=== PATIENT | male | born 1975 | race Caucasian/White ===

== ENCOUNTER 2020-01-07 11:27 | Emergency (ER) | payer OTHER, SELFPAY ==
[2020-01-07 11:40] VITALS: BP 120/72; PULSE 104; RESP 16; TEMP 37.1; O2SAT 96
--- NOTE | 2020-01-07 11:46 | ED.SKABFB ---
HPI - Skin/Abscess/Foreign Bdy General Chief complaint: Extremity Injury, Lower Stated complaint: Injury right foot pinky toe Time Seen by Provider: 01/07/20 11:42 Source: patient and RN notes reviewed Mode of arrival: ambulatory Limitations: no limitations History of Present Illness HPI narrative: Patient presents today complaining of a laceration to the dorsum of his right foot that was sustained approximately 1 hour prior to arrival at home, when he dropped a bladed instrument on his foot. He is up-to-date on his tetanus vaccine. Denies numbness or tingling in the foot or toes. He is currently pain-free. He has tried no [id number] interventions prior to arrival. MD complaint: other (Laceration) Related Data Home Medications Medication Instructions Recorded Confirmed buprenorphine-naloxone film 01/07/20 01/07/20 Allergies Allergy/AdvReac Type Severity Reaction Status Date / Time amitriptyline Allergy Intermediate Unknown Verified 01/07/20 11:43 nortriptyline Allergy Intermediate Unknown Verified 01/07/20 11:43 choline salicylate Allergy Unknown Unknown Verified 01/07/20 11:43 duloxetine Allergy Unknown Unknown Verified 01/07/20 11:43 Sulfa (Sulfonamide Allergy Unknown Unknown Verified 01/07/20 11:43 Antibiotics) CHOLINE SALICYLATE Allergy Mild Unknown Uncoded 01/07/20 11:43 MAGNESIUM SALICYLATE Allergy Mild Unknown Uncoded 01/07/20 11:43 Review of Systems Review of Systems: Narrative: CONSTITUTIONAL: Denies body aches, fever, chills, or sweats. EYES: Denies visual changes, redness, or discharge. ENT: Denies rhinorrhea, congestion, sore throat, or otalgia. CARDIOVASCULAR: Denies chest pain, palpitations, or edema. RESPIRATORY: Denies cough or dyspnea. GASTROINTESTINAL: Denies abdominal pain, nausea, vomiting, or diarrhea. GENITOURINARY: Denies dysuria or hematuria. SKIN: Denies rash, itching. + Laceration to dorsum of right foot MUSCULOSKELETAL: Denies back pain, joint pain, or myalgia. NEUROLOGIC: Denies headache, numbness, tingling, or weakness. PSYCH: Denies depression or anxiety. PMFSH Social History Social History Smoking status: Heavy tobacco smoker Alcohol intake: current Comments At time of signature, I have reviewed and agree with nursing past medical, surgical, social and family history unless otherwise noted. Please see nursing chart for further information. There is no relevant family history pertinent to the presenting complaint Exam Narrative: Exam Narrative: GENERAL: Well-appearing, well-nourished, and in no acute distress. HEAD: Normocephalic, atraumatic. EYES: EOMI. No redness or drainage. Conjunctivae normal. ENT: Mucous membranes pink and moist. NECK: Normal AROM. CHEST: No respiratory distress. EXTREMITIES: Normal range of motion. No edema. SKIN: Warm, dry, no rash. Capillary refill normal. Normal skin turgor. 1.5 cm full-thickness linear laceration to the distal right fifth metatarsal, dorsal aspect. No active bleeding. Distal sensation intact. Capillary refill normal. Pedal pulse normal. Full AROM of the toe against resistance. NEURO: No focal deficits. Alert and oriented x3. Gait steady. PSYCH: Normal affect. No signs of depression or anxiety. Course Vital Signs Vital signs: Vital Signs Temperature 98.8 F 01/07/20 11:40 Pulse Rate 104 H 01/07/20 11:40 Respiratory Rate 16 01/07/20 11:40 Blood Pressure 120/72 01/07/20 11:40 Pulse Oximetry 96 01/07/20 11:40 Temperature 98.8 F 01/07/20 11:40 Pulse Rate 104 H 01/07/20 11:40 Respiratory Rate 16 01/07/20 11:40 Blood Pressure 120/72 01/07/20 11:40 Pulse Oximetry 96 01/07/20 11:40 Reviewed Procedures Laceration Laceration 1: Date: 01/07/20 Time: 12:02 Site: lower extremity Size (cm): 1.5 Description: linear Depth: simple, single layer Local Anesthetic: lidocaine 1% Amount of anesthesia used (mL): 1 Pre-repai
== END 2020-01-07 12:09 | disposition home or self-care (01) ==
PROVIDERS: Emergency Provider Nurse Practitioner
DX: S91.311A Laceration without foreign body, right foot, initial encounter (principal); W26.8XXA Contact with other sharp object(s), not elsewhere classified, initial encounter
CPT/HCPCS: 12001; 99212; G0463

== ENCOUNTER 2020-02-04 16:23 | Emergency (ER) | payer OTHER, SELFPAY ==
[2020-02-04 16:45] VITALS: BP 121/78; PULSE 88; RESP 16; TEMP 36.4
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
== END 2020-02-04 17:34 | disposition home or self-care (01) ==
PROVIDERS: Emergency Provider Nurse Practitioner
DX: L23.1 Allergic contact dermatitis due to adhesives (principal); F17.200 Nicotine dependence, unspecified, uncomplicated
CPT/HCPCS: 99213; G0463

== ENCOUNTER 2020-02-09 20:56 | Emergency (ER) | payer OTHER, SELFPAY ==
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
[2020-02-09 22:55] VITALS: BP 119/78; PULSE 90; RESP 16; TEMP 36.9; O2SAT 96
[2020-02-09] MEDS: LIDOCAINE HCL 1% LOCAL INJ 20 ML VIAL (23:44)
[2020-02-09] MEDS: cefTRIAXone 1 GM VIAL IM (23:44)
[2020-02-09 23:45] VITALS: BP 135/85; PULSE 80; RESP 18; TEMP 36.4; O2SAT 98
== END 2020-02-09 23:50 | disposition home or self-care (01) ==
PROVIDERS: Emergency Provider Family Medicine; PCP Physician Assistant
DX: L03.116 Cellulitis of left lower limb (principal)
CPT/HCPCS: 96372; 99282; 99283; J0696

== ENCOUNTER 2021-12-12 19:08 | Emergency (ER) | payer OTHER, SELFPAY ==
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
[2021-12-12 19:20] VITALS: BP 138/92; PULSE 107; RESP 20; TEMP 37.3; O2SAT 99
--- NOTE | 2021-12-12 19:32 | ED.SKABFB ---
HPI - Skin/Abscess/Foreign Bdy General Chief complaint: Skin/Abscess/Foreign Body Stated complaint: sob, swollen lymph nodes axilla Time Seen by Provider: 12/12/21 19:32 Source: patient Related Data Home Medications Medication Instructions Recorded Confirmed buprenorphine-naloxone 1 film SUBLINGUAL DAILY 01/07/20 02/10/20 Allergies Allergy/AdvReac Type Severity Reaction Status Date / Time amitriptyline Allergy Intermediate Unknown Verified 12/12/21 19:41 nortriptyline Allergy Intermediate Unknown Verified 12/12/21 19:41 choline salicylate Allergy Unknown Unknown Verified 01/07/20 11:43 duloxetine Allergy Unknown Unknown Verified 01/07/20 11:43 Sulfa (Sulfonamide Allergy Unknown Unknown Verified 01/07/20 11:43 Antibiotics) CHOLINE SALICYLATE Allergy Mild Unknown Uncoded 01/07/20 11:43 MAGNESIUM SALICYLATE Allergy Mild Unknown Uncoded 01/07/20 11:43 PMFSH Social History Social History Smoking status: Heavy tobacco smoker Alcohol intake: current Gender identity (if verbalized by the patient): Male Discharge Plan Discharge Prescriptions: No Action buprenorphine-naloxone 12-3 mg film 1 film sublingual DAILY RF: 0 mupirocin 2 % ointment 1 applic TOPICAL BID Qty: 22 RF: 0
--- NOTE | 2021-12-12 19:45 | ECG_ITS ---
Measurements Intervals Steward Rate: 106 P: 16 KS: 158 QRS: 47 QRSD: 91 T: 50 QT: 332 QTc: 442 Interpretive Statements SINUS TACHYCARDIA BORDERLINE ECG Electronically Signed On 12-13-2021 8:01:40 CDT by Bear Burris D.O.
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
[2021-12-12 20:12] VITALS: BP 135/91; PULSE 91; RESP 14; O2SAT 97
[2021-12-12] MEDS: KETOROLAC 30 MG/ML VIAL (*BKC) IM (20:14)
[2021-12-12 20:26] LABS: Basophils Absolute Auto 0.05 K/mm3 (0.00-0.10); Basophils Percent Auto 0.7 % (0.0-1.0); Eosinophils Absolute Auto 0.27 K/mm3 (0.02-0.50); Eosinophils Percent Auto 3.8 % (1.0-6.0); Hematocrit 39.2 % (40.0-54.0); Hemoglobin 13.8 g/dL (14.0-18.0); Immature Granulocyte Absolute 0.02 K/mm3 (0.00-0.00); Immature Granulocyte Percent A 0.3 % (0.0-0.0); Lymphocytes Absolute Auto 2.28 K/mm3 (1.10-4.50); Lymphocytes Percent Auto 31.7 % (18.0-42.0); Mean Corpuscular HGB Conc 35.2 g/dL (32.0-36.0); Mean Corpuscular Hemoglobin 31.4 pg (27.0-31.0); Mean Corpuscular Volume 89.1 fL (78.0-102.0); Mean Platelet Volume 8.7 fl (8.7-11.0); Monocytes Absolute Auto 0.64 K/mm3 (0.10-0.90); Monocytes Percent Auto 8.9 % (2.0-11.0); Neutrophils Absolute Auto 3.9 K/mm3 (1.7-7.2); Neutrophils Percent Auto 54.6 % (50.0-70.0); Platelet Count Result 262 K/mm3 (150-420); Red Cell Distribution Width 11.9 % (11.6-14.4); White Blood Count 7.2 K/mm3 (4.8-10.8)
[2021-12-12 20:43] LABS: Alanine Aminotransferase 19 U/L (16-63); Alkaline Phosphatase 103 U/L (46-116); Anion Gap 6 mmol/L (8-16); Aspartate Amino Transferase 14 U/L (15-37); Bilirubin,Total 0.2 mg/dL (0.00-1.00); Blood Urea Nitrogen 11 mg/dL (7-18); Calcium 8.5 mg/dL (8.5-10.1); Carbon Dioxide 27 mmol/L (21-32); Chloride 103 mmol/L (98-108); Estimated CRCL calculation 115 ml/min; Estimated Glomerular Filt Rate > 60; Glucose 134 mg/dL (70-99); Osmolality Calculated 283 mOsm/kg (285-295); Potassium 3.4 mmol/L (3.5-5.1); Sodium 136 mmol/L (136-145); Total Protein 6.3 g/dL (6.4-8.2); Troponin I 5.2 ng/L (0.00-60.4)
[2021-12-12 21:00] VITALS: BP 135/92; PULSE 92; RESP 16; TEMP 37.1; O2SAT 99
[2021-12-12] MEDS: CEPHALEXIN 500 MG CAPSULE PO (21:02)
== END 2021-12-12 21:09 | disposition home or self-care (01) ==
PROVIDERS: Emergency Provider Internal Medicine Critical Care Medicine
DX: R07.89 Other chest pain (principal); L08.9 Local infection of the skin and subcutaneous tissue, unspecified; F41.9 Anxiety disorder, unspecified; F32.A Depression, unspecified; F11.20 Opioid dependence, uncomplicated; Z72.0 Tobacco use
CPT/HCPCS: 36415; 71101; 80053; 84484; 85025; 93005; 96372; 99284; A9270; J1885

== ENCOUNTER 2022-01-02 13:43 | Emergency (ER) | payer OTHER, SELFPAY ==
[2022-01-02 13:56] VITALS: BP 131/92; PULSE 98; RESP 20; TEMP 36.2; O2SAT 100
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
[2022-01-02 14:42] LABS: Basophils Percent Auto 0.6 % (0.2-1.2); Eosinophils Absolute Auto 0.2 K/mm3 (0-0.3); Eosinophils Percent Auto 3.2 % (0-4.4); Hematocrit 40.3 % (42.0-52.0); Hemoglobin 13.6 g/dL (14.0-18.0); Immature Granulocyte Absolute 0.01 K/mm3 (0.00-0.031); Immature Granulocyte Percent A 0.2 % (0-0.5); Lymphocytes Absolute Auto 2.07 K/mm3 (0.9-3.2); Lymphocytes Percent Auto 33.2 % (18.3-44.2); Mean Corpuscular HGB Conc 33.7 g/dl (32-36); Mean Corpuscular Hemoglobin 30.8 pg (26-34); Mean Corpuscular Volume 91.2 fl (80-100); Mean Platelet Volume 8.8 fl (7.4-10.4); Monocytes Absolute Auto 0.6 K/mm3 (0.1-0.6); Monocytes Percent Auto 9.8 % (2.6-8.5); Neutrophils Absolute Auto 3.3 K/mm3 (1.3-6.7); Platelet Count Result 242 k/mm3 (150-375); Red Blood Count 4.42 M/mm3 (4.6-6.20); Red Cell Distribution Width 12.8 % (11.5-14.5); White Blood Count 6.2 K/mm3 (4.5-10.0)
[2022-01-02 14:53] LABS: Anion Gap 5 mmol/L (8-16); Blood Urea Nitrogen 13 mg/dL (9-20); Calcium 8.8 mg/dL (8.4-10.2); Carbon Dioxide 25 mmol/L (22-30); Chloride 105 mmol/L (98-107); Estimated CRCL calculation 111 ml/min; Estimated Glomerular Filt Rate > 60; Glucose 157 mg/dL (65-110); Potassium 3.4 mmol/L (3.4-5.0); Sodium 135 mmol/L (137-145)
== END 2022-01-02 15:11 | disposition home or self-care (01) ==
PROVIDERS: Physician Assistant; Emergency Provider Emergency Medicine
DX: R21 Rash and other nonspecific skin eruption (principal); F41.9 Anxiety disorder, unspecified; F17.200 Nicotine dependence, unspecified, uncomplicated
CPT/HCPCS: 36415; 80048; 85025; 99283

== ENCOUNTER 2022-01-10 19:37 | Emergency (ER) | payer OTHER, SELFPAY ==
--- NOTE | ~2022-01-10 | XR_ITS ---
EXAM: XR shoulder RT min 2V DATE: 01/10/2022 20:08 HISTORY: Fall and pain . COMPARISON: None available. FINDINGS: Normal mineralization. No fracture or dislocation. No lytic or blastic lesion. Joint space s are maintained. No erosion or periosteal change. Soft tissues within normal limits. IMPRESSION: No acute osseous finding in the right shoulder. Reviewed, dictated and finalized at location K.
[2022-01-10 19:39] VITALS: BP 124/76; PULSE 116; RESP 14; TEMP 36.7; O2SAT 100
--- NOTE | 2022-01-10 19:57 | ED.UPPEXIN ---
HPI - Extremity Injury (Upper) General Chief Complaint: Extremity Injury, Upper Stated Complaint: right shoulder pain Time Seen by Provider: 01/10/22 19:48 History of Present Illness HPI narrative: 46-year-old male presents emergency room secondary pain to the right shoulder. He was bowling yesterday evening and as he went to release the ball his feet came out from under him and he landed on his right shoulder. He hit his head but had no loss of consciousness. The only complaint he has is pain to the right shoulder. Denies any prior injuries to his right shoulder. Has decreased range of motion at that shoulder secondary to pain. Denies any neck pain. Related Data Home Medications Medication Instructions Recorded Confirmed buprenorphine 8 mg-naloxone 2 mg 2 - 8 film buccal BID 12/12/21 12/12/21 sublingual film clonazepam 0.5 mg tablet 2.5 mg PO DIRECTED 12/12/21 12/12/21 sertraline 100 mg tablet 150 mg PO DAILY 12/12/21 12/12/21 Allergies Allergy/AdvReac Type Severity Reaction Status Date / Time amitriptyline Allergy Intermediate Unknown Verified 01/10/22 19:43 nortriptyline Allergy Intermediate Unknown Verified 01/10/22 19:43 duloxetine Allergy Unknown Unknown Verified 01/10/22 19:43 Sulfa (Sulfonamide Allergy Unknown Unknown Verified 01/10/22 19:43 Antibiotics) Review of Systems Review of Systems: CONSTITUTIONAL: Denies fever, chills, or sweats. EYES: Denies visual changes, redness, or discharge. ENT: Denies rhinorrhea, congestion, sore throat, or otalgia. CARDIOVASCULAR: Denies chest pain, palpitations, or edema. RESPIRATORY: Denies cough or dyspnea. GASTROINTESTINAL: Denies abdominal pain, nausea, vomiting, or diarrhea. GENITOURINARY: Denies dysuria or hematuria. SKIN: Denies rash or itching. MUSCULOSKELETAL: Pain to the right shoulder with decreased range of motion. Denies any neck or back pain NEUROLOGIC: Denies headache, numbness, or weakness. PSYCHIATRIC: Denies anxiety or depression. [facility] Past Medical History Medical History No pertinent past medical history Social History Social History Smoking status: Heavy tobacco smoker Alcohol intake: current Gender identity (if verbalized by the patient): Male Exam Narrative: APPEARANCE: Well appearing, no pain or distress, well-nourished. Head normocephalic and atraumatic. EYES: PERRLA/EOMI, conjunctivae very clear. NOSE: Normal with no drainage EARS:TMS clear [place]on Tilley, with good light reflex. THROAT: Pharynx clear, no exudate. NECK: Supple. No adenopathy, no masses. RESPIRATORY: Airway patent, respirations nonlabored. Clear to auscultation bilaterally, no rales, rhonchi, wheezing. CARDIOVASCULAR: Regular rate and rhythm without murmurs, rubs, or gallops. ABDOMINAL: Soft, nontender, nondistended, no hepatosplenomegaly Musculoskeletal: Decreased range of motion of the right shoulder. Got focal tenderness to palpation to the right anterior shoulder. No obvious deformity. There is no tenderness to palpation along the clavicle. There is no tenderness to palpation along the humerus down to the fingers. NEURO: Alert. Cranial nerves II through XII intact. Normal gait. Good coordination. Nonfocal examination. SKIN:: Warm, dry. Normal Color PSYCHIATRIC: Normal affect/mood, normal interaction Course Vital Signs Vital signs: Vital Signs Temperature 98.0 F 01/10/22 19:39 Pulse Rate 116 H 01/10/22 19:39 Respiratory Rate 14 01/10/22 19:39 Blood Pressure 124/76 01/10/22 19:39 Pulse Oximetry 100 01/10/22 19:39 Oxygen Delivery Room Air 01/10/22 19:39 Temperature 98.0 F 01/10/22 19:39 Pulse Rate 116 H 01/10/22 19:39 Respiratory Rate 14 01/10/22 19:39 Blood Pressure 124/76 01/10/22 19:39 Pulse Oximetry 100 01/10/22 19:39 Oxygen Delivery Room Air 01/10/22 19:39 MDM - Extremity Injury (Upper) MDM
--- NOTE | 2022-01-10 20:02 | PC.NURSE ---
Patient taken to xray.
[2022-01-10] MEDS: NAPROXEN 500 MG TABLET PO (20:09)
== END 2022-01-10 20:52 | disposition home or self-care (01) ==
PROVIDERS: Emergency Provider Emergency Medicine; PCP Physician Assistant
DX: S49.91XA Unspecified injury of right shoulder and upper arm, initial encounter (principal); W18.39XA Other fall on same level, initial encounter; Y93.54 Activity, bowling; F17.200 Nicotine dependence, unspecified, uncomplicated
CPT/HCPCS: 73030; 99283; A9270

== ENCOUNTER 2022-09-15 13:15 | Outpatient (CLI) | payer OTHER, SELFPAY ==
--- NOTE | ~2022-09-15 | MR_ITS ---
EXAMINATION: MR shoulder RT wo con DATE: 09/15/2022 14:17 INDICATION: Right shoulder pain TECHNIQUE: Magnetic resonance imaging (MRI) of the affected shoulder was performed without intravenou s contrast. Sequences included axial PD-weighted FS FSE, coronal oblique PD-weighted FS FSE, coronal oblique T2-weighted FS FSE, sagittal PD-weighted FS FSE, and sagittal T1-weighted SE. COMPARISON: None. FINDINGS: Coracoacromial arch: The acromion undersurface is minimally curved in morphology (type I-II) which is accentuated anterior ly by a small subacromial spur at the acromial insertion of the normal coracoacromial ligament. Minim al acromioclavicular osteoarthritis. Rotator cuff: Mild to moderate tendinopathy of the supraspinatus and conjoined portion of the supraspinatus and inf raspinatus tendons without tear. The more posterior infraspinatus and teres minor tendons are normal. [Subscapularis tendinopathy with small partial-thickness longitudinal split tear extending up to 1.5 cm medially from the lesser tuberosity footplate. Normal rotator cuff muscle bulk and signal. Biceps tendon, glenoid labrum and glenohumeral cartilage: Long head of the biceps tendon is normal. Glenoid labrum is normal. Glenohumeral cartilage is normal. Fluid: Physiologic amount of fluid in the glenohumeral joint and biceps tendon sheath. No loose osteochondr al bodies. Small amount of fluid in the subacromial/subdeltoid bursa consistent with mild bursitis. Bones: Normal marrow signal with no edema, fracture or abnormal marrow replacing process. IMPRESSION: 1. Moderate tendinopathy of the supraspinatus and conjoined supraspinatus and infraspinatus tendons w ithout discrete tear. 2. Mild tendinopathy and small intrasubstance longitudinal split tear at the lesser tuberosity insert ion of the subscapularis tendon. 2. Mild subacromial/subdeltoid bursitis. Reviewed, dictated and finalized at location A. SER IMPRESSION: 1. Moderate tendinopathy of the supraspinatus and conjoined supraspinatus and i nfraspinatus tendons without discrete tear. 2. Mild tendinopathy and small intrasubstance longitudinal split tear at the le sser tuberosity insertion of the subscapularis tendon. 2. Mild subacromial/subdeltoid bursitis.
== END 2022-09-15 13:16 | disposition home or self-care (01) ==
PROVIDERS: PCP Physician Assistant; Visit Provider Nurse Practitioner Family
DX: M25.511 Pain in right shoulder (principal); M75.81 Other shoulder lesions, right shoulder; S46.811A Strain of other muscles, fascia and tendons at shoulder and upper arm level, right arm, initial encounter; M75.51 Bursitis of right shoulder
CPT/HCPCS: 73221

== ENCOUNTER 2024-01-26 19:15 | Emergency (ER) | payer BC, OTHER, SELFPAY ==
[2024-01-26 19:17] VITALS: BP 125/87; PULSE 89; RESP 16; TEMP 36.2; O2SAT 100
--- NOTE | 2024-01-26 20:25 | ED.GENADULT ---
HPI - General Adult General Chief complaint: Skin/Abscess/Foreign Body Stated complaint: rash Time Seen by Provider: 01/26/24 19:49 History of Present Illness HPI narrative: Patient is a 48-year-old male who presents to the emergency department this afternoon complaining of a rash to his right shoulder that started a few days ago. Patient admits that the rash is painful and does burn, does not itch. Patient states that approximately 2 weeks ago he had pre tick bites on his torso 1 of them near the area of the rash around his right chest, the other 1 was behind his right ear and the 3rd 1 was on his left chest. Patient believes that the tics were only there for 3 hours. This happened 2 weeks ago. Rash does appear to be vesicular resembling shingles although it does not stick to 1 dermatome. Patient denies any systemic symptoms including any fevers, chills, headache, dizziness, lightheadedness, focal weakness, numbness and no tingling, chest pain, shortness of breath, nausea, vomiting or any abdominal pain. No additional symptoms or concerns at this time. Related Data Home Medications Medication Instructions Recorded Confirmed buprenorphine 8 mg-naloxone 2 mg 2 - 8 film buccal BID 12/12/21 12/12/21 sublingual film clonazepam 0.5 mg tablet 2.5 mg PO DIRECTED 12/12/21 12/12/21 sertraline 100 mg tablet 150 mg PO DAILY 12/12/21 12/12/21 Allergies Allergy/AdvReac Type Severity Reaction Status Date / Time amitriptyline Allergy Intermediate Unknown Verified 10/04/22 13:49 nortriptyline Allergy Intermediate Unknown Verified 10/04/22 13:49 duloxetine Allergy Unknown Unknown Verified 10/04/22 13:49 Sulfa (Sulfonamide Allergy Unknown Unknown Verified 10/04/22 13:49 Antibiotics) Review of Systems Review of Systems: All systems are reviewed and are negative unless stated otherwise in the HPI. [facility] Past Medical History Medical History Adverse effect of anesthesia Anxiety Arthritis Chest tightness No pertinent past medical history Pilonidal disease Right shoulder pain Rotator cuff tear Shoulder strain Skin ulcer Tendinopathy of rotator cuff Surgical History Surgical History History of ankle surgery 1999 History of excision of pilonidal cyst [id number], [id number], 2012 Family History Family History Other Cancer of mesothelial tissue Diabetes mellitus Social History Social History Smoking packs per day: 1 Smoking cigarettes per day: 20.0 Years smoked: 20 Smoking pack-years: 20.00 Smoking status: Current every day smoker Tobacco type: cigarettes Alcohol intake: never Substance use: current Substance use type: marijuana Other substance usage details: rarely Gender identity (if verbalized by the patient): Male Exam Narrative: General: Alert, awake, afebrile, in no acute distress. HEENT: PERRL, no rhinorrhea, no post nasal drip, oropharynx clear. Cardiovascular: Regular rate and rhythm, no murmurs, rubs or gallops, no peripheral edema. Respiratory: Clear to auscultation bilaterally, no tachypnea, no wheezing, no rhonchi, no rubs, no respiratory distress. Abdomen: Soft, nontender, nondistended, no rebound, no guarding, no peritoneal signs. Musculoskeletal: No joint swelling or deformity, normal muscle tone. Skin: Vesicular rash noted along the patient's right chest resembling shingles, does not cross midline, does not follow a single dermatome, a small area of erythema behind the patient's right ear resembling cellulitis. Neurological: Alert and oriented to person, place, and time. Follows all commands. No focal deficits, speech is clear and fluent. Course Vital Signs Vital signs: Vital Signs Temperature 97.2 F L 01/26/24 19:17 Pulse Rate 89 07/0
[2024-01-26] MEDS: DOXYCYCLINE HYCLATE 100 MG TABLET PO (21:00)
[2024-01-26] MEDS: valACYclovir HCL 500 MG TABLET 1000 MG PO (21:00)
== END 2024-01-26 21:02 | disposition home or self-care (01) ==
LOC: ANHED 20:47
PROVIDERS: Emergency Provider Emergency Medicine; PCP Physician Assistant
DX: B02.9 Zoster without complications (principal); L03.313 Cellulitis of chest wall; F41.9 Anxiety disorder, unspecified; F17.210 Nicotine dependence, cigarettes, uncomplicated; Z79.899 Other long term (current) drug therapy
CPT/HCPCS: 99283; A9270